=== PATIENT | male | born 1965 | race Caucasian/White ===

== ENCOUNTER 2021-04-22 11:42 | Emergency (ER) | payer OTHER ==
[~2021-04-22] VITALS: Ht 180.3 cm; Wt 88.0 kg
[2021-04-22] MEDS ORDERED: ONDANSETRON HCL 4MG/2ML INJ IV STA (11:51)
[2021-04-22 12:25] LABS: CHLORIDE 107 mEq/L (98-107)
[2021-04-22 12:27] LABS: BASOPHILS % 0.4 % (0.0-2.0); EOSINOPHILS % 0.3 % (0.0-5.0); HEMATOCRIT. 41.3 % (42.0-52.0); HEMOGLOBIN. 14.8 g/dL (14.0-18.0); LYMPHOCYTES % 9.8 % (20.0-50.0); MEAN CORPUSCULAR HEMOGLOBIN 32.3 pg (28.0-32.0); MEAN PLATELET VOLUME 8.3 fl (7.4-10.4); MONOCYTES % 3.8 % (2.0-8.0); NEUTROPHILS % 85.7 % (40.0-76.0); PLATELET 225 x1000/uL (130-400); RED BLOOD CELL COUNT 4.59 mill/uL (4.7-6.1); RED CELL DISTRIBUTION WIDTH 13.6 % (11.6-14.6)
[2021-04-22 12:28] LABS: PROTHROMBIN TIME 10.4 sec (9.6-11.0)
[2021-04-22] MEDS ORDERED: SODIUM CHLORIDE 0.9% 1,000 ML IV ONE (13:15)
[2021-04-22 13:58] LABS: CLARITY URINE CLEAR (CLEAR); COLOR URINE YELLOW (YELLOW); KETONES URINE 3+ (NEGATIVE); LEUKOCYTE ESTERASE URINE NEGATIVE (NEGATIVE); NITRITE URINE NEGATIVE (NEGATIVE); OCCULT BLOOD URINE NEGATIVE (NEGATIVE); PH URINE 6.5 (4.5-8.0); PROTEIN URINE NEGATIVE (NEGATIVE); SPECIFIC GRAVITY URINE 1.023 (1.005-1.030); UROBILINOGEN URINE 0.2 E.U./dL (0.2-1.0)
[2021-04-22 14:55] VITALS: BP 134/78
== END 2021-04-22 15:19 | disposition left against medical advice (07) ==
LOC: ER 11:42
DX: R11.2 Nausea with vomiting, unspecified (principal); R10.84 Generalized abdominal pain; F10.10 Alcohol abuse, uncomplicated; Y90.9 Presence of alcohol in blood, level not specified
CPT/HCPCS: 36415; 80053; 81003; 83605; 83690; 85025; 85610; 96361; 96374; 99283; J2405; J7030